=== PATIENT | male | born 1940 | race Caucasian/White ===

== ENCOUNTER 2017-03-18 12:33 | Emergency (ER) | payer OTHER ==
[2017-03-18 13:06] LABS: BASOPHIL# 0.1 X 10^3uL (0.0-0.1); BASOPHILS 0.8 % (0.0-2.0); EOSINOPHILS 0.1 % (0.0-6.0); HEMATOCRIT 50.3 % (42.0-54.0); HEMOGLOBIN 17.1 g/dL (14.0-18.0); LYMPHOCYTES 13.9 % (20.0-40.0); LYMPHOCYTES# 1.2 X 10^3uL (0.8-3.8); MEAN CELL VOLUME 87.2 fL (80.0-100.0); MEAN CORPUSCULAR HEMOGLOBIN 29.7 pg (29.0-35.0); MEAN PLATELET VOLUME 8.6 fL (7.4-10.4); MONOCYTES 8.3 % (2.0-10.0); MONOCYTES# 0.7 X 10^3uL (0.2-1.0); NEUTROPHILS 76.9 % (54.0-75.0); RED BLOOD COUNT 5.77 X 10^6uL (4.20-6.10); RED CELL DISTRIBUTION WIDTH 12.5 % (11.5-14.5)
[2017-03-18 13:13] LABS: A/G RATIO 1.2; ALBUMIN 3.9 g/dL (3.5-5.0); BILIRUBIN, TOTAL 0.7 mg/dL (0.2-1.3); CALCIUM 9.6 mg/dL (8.4-10.2); POTASSIUM 4.5 mmol/L (3.5-5.1); TOTAL PROTEIN 7.2 g/dL (6.3-8.2); URIC ACID 7.2 mg/dL (3.5-8.5)
--- NOTE | 2017-03-18 14:00 | ER PHYSICIAN DOCUMENTATION ---
Physician Documentation [facility] Name:Merrick Pierre Age:77 yrs Sex:Male :1940 Arrival Date:03/18/2017 Time:12:33 Bed6 Private MD:Juan Solo ED, Tom Disposition: 03/18 14:00 Chart complete. tl1 Disposition: 03/18/17 13:48 Discharged to Home/Self Care. Impression: Gout. - Condition is Good. - Discharge Instructions: GOUTY ARTHRITIS. - Prescriptions for Prednisone 20 mg Oral Tablet - take 2 tablet by ORAL route once daily for 5 days; 10 tablet. - Medical Reconciliation form form. - Follow up: Juan Solo MD; When: 4- 6 days; Reason: Recheck today's complaints, Continuance of care. - Problem is an acute exacerbation. - Symptoms are unchanged. HPI: 12:40 This 77 yrs old Male presents to ER with complaints of right Foot Pain - GOUT.tl1 12:40 He says he has a h/o gout affecting his right foot and for the last day he has had tl1 progressive pain over the mid dorsum of his foot with swelling, redness and hyperesthesia to light touch. He has a lot of pain with ambulation. No fever. No trauma.. Historical: - Allergies: PENICILLINS; Codeine; Demerol; SULFA (SULFONAMIDES); COLCHICINE DERIVATIVES; contrast; Diuretic; Indocin; THIAZIDES; - Home Meds: 1. aspirin 81 mg oral tab 2 tabs twice a day 2. carvedilol 12.5 mg oral tab 1 tab 2 times per day with food - PMHx: CAD; ASTHMA; CAD; HYPERTENSION; GOUT; hiatal hernia; GERD; Chest Pain - r/o [place] (January 24, 2016); - PSHx: STENTS; - Tetanus: < 10 years. - Ebola Screening: : Patient negative for fever greater than or equal to 101.5 degrees Fahrenheit, and additional compatible Ebola Virus Disease symptoms. Patient denies exposure to infectious person. Patient denies travel to an Ebola-affected area in the 21 days before illness onset. . - Immunization history: Pneumococcal vaccine is not up to date, Patient has never been vaccinated, Flu Vaccine None. - Social history: Smoking status: Patient states was never smoker of tobacco. ROS: 12:40 MS/extremity: Positive for erythema, pain, swelling, warmth, of the dorsum of right tl1 foot. 12:40 All other systems are negative. Exam: 12:40 Head/Face: Normocephalic, atraumatic. tl1 Eyes: Pupils equal round and reactive to light, extra-ocular motions intact. Lids and lashes normal. Conjunctiva and sclera are non-icteric and not injected. Cornea within normal limits. Periorbital areas with no swelling, redness, or edema. ENT: Nares patent. No nasal discharge, no septal abnormalities noted. Tympanic membranes are normal and external auditory canals are clear. Oropharynx with no redness, swelling, or masses, exudates, or evidence of obstruction, uvula midline. Mucous membranes moist. Neck: Trachea midline, no thyromegaly or masses palpated, and no cervical lymphadenopathy. Supple, full range of motion without nuchal rigidity, or vertebral point tenderness. No Meningismus. Chest/axilla: Normal chest wall appearance and motion. Nontender with no deformity. No lesions are appreciated. Cardiovascular: Regular rate and rhythm with a normal S1 and S2. No gallops, murmurs, or rubs. Normal PMI, no JVD. No pulse deficits. Respiratory: Lungs have equal breath sounds bilaterally, clear to auscultation and percussion. No rales, rhonchi or wheezes noted. No increased work of breathing, no retractions or nasal flaring. 12:40 Abdomen/GI: Soft, non-tender, with normal bowel sounds. No distension or tympany. No tl1 guarding or rebound. No evidence of tenderness throughout. 12:40 Constitutional: The patient appears alert, awake, well developed, well hydrated, well groomed, well nourished, in obvious distress, restless, uncomfortable. 12:40 Musculoskeletal/extremity: Extremities: grossly normal except: noted in the dorsum of right foot: erythema, pain, swelling, tenderness, ROM: limited active range of motion, limited passive range of motion, Circulation is intact in all extremities. Sensation intact. 12:40 Skin: Exam negative for acute changes. 12:40 Neuro: Exam negative for acute changes. Vital Signs: 12:39 BP 176 / 87; Pulse 59; Resp 16; Temp 98.1(O); Pulse Ox 93% on R/A; Weight 70.31 kg (R); arc Height 5 ft. 9 in. (175.26 cm) (R); Pain 9/10; 13:58 BP 144 / 104; Pulse 55; Resp 14; Pulse Ox 94% on R/A; lp 12:39 Body Mass Index 22.89 (70.31 kg, 175.26 cm) arc MDM: 12:40 Patient medically screened. tl1 14:00 Differential diagnosis: arthritis, gout, cellulitis. Data reviewed: vital signs, nurses tl1 notes, lab test result(s), and as a result, I will discharge patient. Test interpretation: by ED physician or midlevel provider: plain radiologic studies. Counseling: I had a detailed discussion with the patient and/or guardian regarding: the historical points, exam findings, and any diagnostic results supporting the discharge/admit diagnosis, lab results, radiology results, the need for outpatient follow up, to return to the emergency department if symptoms worsen or persist or if there are any questions or concerns that arise at home. ECG:. Response to treatment: the patient's symptoms have mildly improved after treatment, and as a result, I will discharge patient. 03/18 13:11 Order name: CBC AUTO DIF, MDIF/RMOR IF IND; Complete Time: 13:48 EDMS 03/18 13:40 Interpretation: WHITE BLOOD COUNT 9.0; HEMOGLOBIN 17.1; HEMATOCRIT 50.3; PLATELET COUNT tl1 163; NEUTROPHILS 76.9. 03/18 13:14 Order name: COMPREHENSIVE METABOLIC PANEL; Complete Time: 13:48 EDMS 03/18 13:40 Interpretation: SODIUM 140; POTASSIUM 4.5; CHLORIDE 107; CARBON DIOXIDE 27; GLUCOSE 83; tl1 BLOOD UREA NITROGEN 29; CREATININE 1.9; EST GLOMERULAR FILTRATION RATE 37. 03/18 13:14 Order name: URIC ACID; Complete Time: 13:48 EDMS 03/18 13:40 Interpretation: Normal: URIC ACID 7.2. tl1 Dispensed Medications: No medications were administered Signatures: Adriana Stewart RN RN lp Leigh, Tom, MD MD tl1
--- NOTE | 2017-03-18 14:00 | ER NURSING DOCUMENTATION ---
Nurse's Notes [facility] Name:Merrick Pierre Age:77 yrs Sex:Male :1940 Arrival Date:03/18/2017 Time:12:33 Bed6 Private MD:Juan Solo Diagnosis:Gout Presentation: 03/18 12:36 Acuity: IVETTE 4 lp 12:47 Presenting complaint: Patient states: R foot pain. Transition of care: Home. Notified lp ED Physician of Dr. Burnett notified. 12:47 Method Of Arrival: Private Vehicle lp Triage Assessment: 12:48 General: Appears in no apparent distress, Behavior is appropriate for age. Pain: lp Complains of pain in dorsum of right foot. EENT: No deficits noted. Neuro: No deficits noted. Cardiovascular: No deficits noted. Respiratory: No deficits noted. GI: No deficits noted. : No deficits noted. Derm:. Musculoskeletal: Swelling present in lateral aspect of right foot and dorsum of right foot. Historical: - Allergies: PENICILLINS; Codeine; Demerol; SULFA (SULFONAMIDES); COLCHICINE DERIVATIVES; contrast; Diuretic; Indocin; THIAZIDES; - Home Meds: 1. aspirin 81 mg oral tab 2 tabs twice a day 2. carvedilol 12.5 mg oral tab 1 tab 2 times per day with food - PMHx: CAD; ASTHMA; CAD; HYPERTENSION; GOUT; hiatal hernia; GERD; Chest Pain - r/o [place] (January 24, 2016); - PSHx: STENTS; - Tetanus: < 10 years. - Ebola Screening: : Patient negative for fever greater than or equal to 101.5 degrees Fahrenheit, and additional compatible Ebola Virus Disease symptoms. Patient denies exposure to infectious person. Patient denies travel to an Ebola-affected area in the 21 days before illness onset. . - Immunization history: Pneumococcal vaccine is not up to date, Patient has never been vaccinated, Flu Vaccine None. - Social history: Smoking status: Patient states was never smoker of tobacco. Screenin:49 Infectious Disease Risk None. Abuse screen: Denies threats or abuse. Denies injuries lp from another. Nutritional screening: No deficits noted. Vital Signs: 12:39 BP 176 / 87; Pulse 59; Resp 16; Temp 98.1(O); Pulse Ox 93% on R/A; Weight 70.31 kg (R); arc Height 5 ft. 9 in. (175.26 cm) (R); Pain 9/10; 13:58 BP 144 / 104; Pulse 55; Resp 14; Pulse Ox 94% on R/A; lp 12:39 Body Mass Index 22.89 (70.31 kg, 175.26 cm) arc ED Course: 12:34 Patient arrived in ED. jt 12:35 Juan Solo MD is Private Physician. jt 12:35 Adriana Stewart RN is Primary Nurse. lp 12:36 Triage completed. lp 12:40 Shreyas Burnett MD is Attending Physician. tl1 12:[address] Burnett notified. lp 12:50 Valuables Remains with patient Placed in gown. Bed in low position. Call light in reach.lp 12:57 Inserted peripheral IV: 20 gauge in left antecubital area and blood collected. arc 13:48 Juan Solo MD is Referral Physician. tl1 13:59 Discontinued IV bleeding controlled, pressure dressing applied. lp Administered Medications: No medications were administered Outcome: 13:48 Discharge ordered by . tl1 13:59 Discharged to home ambulatory. lp 13:59 Condition: stable 13:59 Instructed on discharge instructions, follow up and referral plans. medication usage. 13:59 Patient left the ED. lp Signatures: Adriana Stewart RN RN Shreyas Burnett MD MD tl1 Saba Davis, Narinder Barecnas [facility] Alley Ramires
== END 2017-03-18 14:00 | disposition home or self-care (01) ==
LOC: ER 12:33
DX: M10.9 Gout, unspecified (principal); M79.671 Pain in right foot; I10 Essential (primary) hypertension; I25.10 Atherosclerotic heart disease of native coronary artery without angina pectoris; Z95.5 Presence of coronary angioplasty implant and graft; Z79.899 Other long term (current) drug therapy; Z79.82 Long term (current) use of aspirin
CPT/HCPCS: 80053; 84550; 85025; 99283